=== PATIENT | female | born 1955 | race Hispanic/Latino ===

== ENCOUNTER 2024-04-26 10:25 | Outpatient (CLI) | payer MEDICARE ==
[2024-04-26 12:06] LABS: Hemoglobin 11.1 g/dL (12.0-15.5); Mean Corpuscular HGB CONC 32.6 g/dL (32.0-36.0); Mean Corpuscular Hemoglobin 28.7 pg (27.0-33.0); Mean Corpuscular Volume 87.9 fL (81.6-98.3); Mean Platelet Volume 10.8 fL (7.4-10.4); Platelet Count 167 10x3/uL (150-450); RBC Distribution Width 14.9 % (11.5-14.5); Red Blood Cell (RBC) Count 3.87 10x6/uL (3.90-5.03); White Blood Cell (WBC) Count 4.7 10x3/uL (3.5-10.5)
== END 2024-04-26 10:26 | disposition home or self-care (01) ==
LOC: CSHLAB 10:25
PROVIDERS: ATTEND Surgery
DX: Z01.812 Encounter for preprocedural laboratory examination (principal); C25.9 Malignant neoplasm of pancreas, unspecified
CPT/HCPCS: 85027

== ENCOUNTER 2024-08-16 12:55 | Outpatient (CLI) | payer MEDICARE | END 2024-08-16 12:56 | disposition home or self-care (01) | LOC: CSHULT 12:55 | PROVIDERS: ATTEND Internal Medicine Hematology & Oncology | DX: R60.0 Localized edema (principal); C25.3 Malignant neoplasm of pancreatic duct; R93.1 Abnormal findings on diagnostic imaging of heart and coronary circulation | CPT/HCPCS: 93306 ==